=== PATIENT | male | born 1990 | race Caucasian/White ===

== ENCOUNTER 2023-10-05 10:57 | Outpatient (CLI) | payer OTHER, SELFPAY ==
[2023-10-05 14:56] LABS: Chlamydia DNA Amplified* NOT DETECTED (No Detected); GC DNA Amplified* NOT DETECTED (No Detected)
== END 2023-10-05 10:58 | disposition home or self-care (01) ==
LOC: NFLDUCREF 10:57
PROVIDERS: Visit Provider Nurse Practitioner
DX: N50.819 Testicular pain, unspecified (principal)
CPT/HCPCS: 87491; 87591